=== PATIENT | male | born 1935 | race Caucasian/White ===

== ENCOUNTER → 2017-01-09 | Outpatient (CLI) | payer MEDICARE, BC ==
[~2017-01-09] MED LIST: ASPI-557 PO; DIPH-343 PO; EZET1TAB2 PO; FISH1CAP23 PO; FURO20TA6 PO; MULT-934 PO; PANT40TA27 PO; POTA20TA15 PO
--- NOTE | 2017-01-10 08:33 | DI ---
Indication: ITS.REASON: M25.552 PROCEDURE: HIP LEFT 2 VIEW: Encounter: Initial Comparison: None Findings: There is no acute fracture, dislocation or malalignment identified. No significant joint space narrowing. Tiny osteophytes on the humeral head. Impression: No acute osseous abnormality. Minimal degenerative change for age. .
== END ==
LOC: IMA 16:36
PROVIDERS: ATTEND Internal Medicine
DX: M25.552 Pain in left hip (principal)